=== PATIENT | female | born 1965 | race Caucasian/White ===

== ENCOUNTER 2019-04-24 18:21 | Emergency (ER) | payer OTHER ==
[~2019-04-24] VITALS: Ht 175.3 cm; Wt 68.0 kg
[2019-04-24 18:30] VITALS: BP 145/85
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
--- NOTE | 2019-04-24 19:13 | NUR ---
HAND-OFF: Report given to Marisa NASH.
[2019-04-24] MEDS ORDERED: Acetaminophen 500mg (ES) tab ORAL ONE (19:15)
--- NOTE | 2019-04-24 19:30 | NUR ---
ED Nurse Note: xray at the bedside.
[2019-04-24] MEDS ORDERED: IBUPROFEN600 MG ORAL (19:42)
[2019-04-24] MEDS ORDERED: LIDODERM700 M1 TOPIC (19:42)
[2019-04-24] MEDS ORDERED: ROBAXIN-750750 MG PO (19:42)
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
[2019-04-24 20:05] VITALS: BP 138/76
--- NOTE | 2019-04-24 20:05 | NUR ---
ED Nurse Note: correction: ER provider pt taking lyft home.
--- NOTE | 2019-04-24 20:05 | NUR ---
ED Nurse Note: PT cleared to be d/c per ERMD, pt thumb spika applied by natural gas technician, pt discharge and aftercare instruction provided w/ prescription, pt advised to follow up with pcp or return to ed if changes in condition, pt education done via discussion and handout, pt verbalized understanding and agrees with plan, vss, ambulatory w/steady gait, ID band removed, left w/ all belongings.
--- NOTE | 2019-04-25 11:06 | Diagnostic Imaging Report ---
Indication: Left hand pain Technique: 3 views left hand Comparison: none Findings: No acute fractures. No dislocations. Joint spaces are preserved. Impression: Negative
== END 2019-04-24 20:05 | disposition home or self-care (01) ==
LOC: EDBD 18:21 → EMR 18:52
DX: S63.502A Unspecified sprain of left wrist, initial encounter (principal); T14.8XXA Other injury of unspecified body region, initial encounter; S16.1XXA Strain of muscle, fascia and tendon at neck level, initial encounter; V43.52XA Car driver injured in collision with other type car in traffic accident, initial encounter; Y92.410 Unspecified street and highway as the place of occurrence of the external cause; I10 Essential (primary) hypertension; R10.30 Lower abdominal pain, unspecified
CPT/HCPCS: 29125; 99283